=== PATIENT | female | born 1970 | race Hispanic/Latino ===

== ENCOUNTER 2019-12-01 06:10 | Day surgery (SDC) | payer BC ==
[2019-11-30 10:36] LABS: BASOPHILS % (AUTO) 0.4 % (0.0-5.0); EOSINOPHILS % (AUTO) 2.4 % (0.0-8.0); HEMATOCRIT 38.7 % (36-48); LYMPHOCYTES % (AUTO) 29.1 % (21.0-51.0); MEAN CORPUSCULAR HEMOGLOBIN 29.8 pg (27.0-33.0); MEAN CORPUSCULAR HGB CONC 33.1 g/dL (32.0-36.0); MEAN CORPUSCULAR VOLUME 90.2 fL (79-99); MONOCYTES % (AUTO) 5.5 % (3.0-13.0); NEUTROPHILS % (AUTO) 62.2 % (40.0-77.0); PLATELET COUNT (AUTO) 263 K/uL (130-400); RED BLOOD CELL COUNT(AUTO) 4.29 MIL/uL (4.00-5.50); RED CELL DISTRIBUTION WIDTH 14.4 % (11.0-15.5); WHITE BLOOD COUNT (AUTO) 7.8 K/uL (4.8-10.8)
[2019-11-30 10:41] LABS: CREATININE 0.6 mg/dL (0.5-1.5); POTASSIUM 3.8 mmol/L (3.5-5.1)
[2019-11-30 10:50] VITALS: BP 131/58
[~2019-12-01] VITALS: Ht 172.7 cm; Wt 101.2 kg
[2019-12-01] VITALS (13 sets, daily range): BP systolic 103–121; BP diastolic 59–69
[~2019-12-01 06:10] MED LIST: METF-444 PO; MONT10TA21 PO
[2019-12-01] MEDS ORDERED: SODIUM CHLORIDE 0.9% 1000ML 1,000 ML IV ONE (06:43)
[2019-12-01] MEDS ORDERED: ONDANSETRON HCL 4 MG/2 ML VIAL ONE (06:55)
[2019-12-01] MEDS ORDERED: LIDOCAINE PF 2% 5ML ABBOJECT ONE (06:55)
[2019-12-01] MEDS ORDERED: DEXAMETHASONE SOD PHOSPHATE 10MG/ML 1ML VIAL ONE (06:56)
[2019-12-01] MEDS ORDERED: PROPOFOL 10 MG/ML 20ML VIAL IV ONE (06:56)
[2019-12-01] MEDS ORDERED: FENTANYL CITRATE PF 50 MCG/1 ML 2ML VIAL ONE (06:56)
[2019-12-01] MEDS ORDERED: MIDAZOLAM HCL 1 MG/ML 2ML VIAL ONE (06:56)
[2019-12-01] MEDS ORDERED: PROG100C11 PO (06:57)
[2019-12-01] MEDS ORDERED: BUPR-47 PO (06:57)
[2019-12-01] MEDS ORDERED: NAPR-1023 PO (06:57)
[2019-12-01] MEDS ORDERED: MEPERIDINE-PF 25 MG/ML SYG ONE (08:08)
--- NOTE | 2019-12-01 08:45 | NUR ---
RECEIVE PT RECEIVED FROM PACU AWAKE ALERT ORIENTED X3. STABLE. NO COMPLAINTS MADE. OB PAD DRY NO BLEEDING NOTED. WILL CALL TO COME IN TO ROOM.
--- NOTE | 2019-12-01 09:15 | NUR ---
DISCHARGE PT DISCHARGED VIA WHEELCHAIR WITH VIA WHEELCHAIR BY KARMEN LARA. DISCHARGE INSTRUCTIONS WERE ALSO GIVEN BY ANGEL WILL. PT AND VERBALIZED UNDERSTANDING. PT STABLE. NO COMPLAINTS MADE. OB PAD REMAINS DRY, NO BLEEDING NOTED.
== END 2019-12-01 09:15 | disposition home or self-care (01) ==
LOC: DAH 06:10
PROVIDERS: ATTEND Obstetrics & Gynecology
DX: N95.0 Postmenopausal bleeding (principal); N85.8 Other specified noninflammatory disorders of uterus; E11.9 Type 2 diabetes mellitus without complications; J45.909 Unspecified asthma, uncomplicated; Z98.890 Other specified postprocedural states; Z98.51 Tubal ligation status; Z79.899 Other long term (current) drug therapy; Z79.84 Long term (current) use of oral hypoglycemic drugs; Z90.49 Acquired absence of other specified parts of digestive tract; Z82.49 Family history of ischemic heart disease and other diseases of the circulatory system; Z83.3 Family history of diabetes mellitus
CPT/HCPCS: 36415; 58558; 80048; 82948 ×2; 85025; 86850; 86900; 86901; A4215; A4216; A4221; A4222; A4223 ×3; A4351; A4355; A4606; A4663; A6260; J1100; J2001; J2175; J2250; J2405; J2704; J3010; J7030 ×3